=== PATIENT | male | born 1975 | race African-American/Black ===

== ENCOUNTER 2024-11-07 08:15 | Emergency (ER) | payer OTHER ==
[~2024-11-07] VITALS: Ht 188 cm; Wt 96.0 kg
[2024-11-07 08:17] VITALS: TEMP 36.7; O2SAT 98
[2024-11-07 09:07] VITALS: BP 145/78; PULSE 81; RESP 18
[2024-11-07] MEDS: IBUPROFEN 600MG TABLET PO ONE (09:07)
[2024-11-07] MEDS ORDERED: KETO10TA2 MT (10:34)
== END 2024-11-07 10:57 | disposition home or self-care (01) ==
LOC: ER 08:15
DX: S42.402A Unspecified fracture of lower end of left humerus, initial encounter for closed fracture (principal); J45.909 Unspecified asthma, uncomplicated; V89.0XXA Person injured in unspecified motor-vehicle accident, nontraffic, initial encounter; Y93.89 Activity, other specified; Y92.89 Other specified places as the place of occurrence of the external cause; Y99.8 Other external cause status
CPT/HCPCS: 29105; 73060; 73080; 99284; A4565